=== PATIENT | female | born 1980 | race Two or more races ===

== ENCOUNTER 2020-11-01 14:11 | Emergency (ER) | payer BC, MEDICAID ==
[~2020-11-01] VITALS: Ht 152.4 cm; Wt 46.0 kg
[~2020-11-01 14:11] MED LIST: ACET-704 PO; IBUP-1060 PO
[2020-11-01] MEDS ORDERED: TRIA80OI TP (17:39)
[2020-11-01] MEDS ORDERED: CETI10TA74 PO (17:39)
--- NOTE | 2020-11-01 17:39 | PHYS DOC ---
General Adult EDM: Chief Complaint: SKIN PROBLEM HPI: HPI: Patient is a 40 year old female who presents to the ED today with a pruritic rash on the neck that began on Sunday. Patient denies any new soaps, laundry detergents, or anything that could have caused to rash. Denies any fever Review of Systems: Review of Systems: Constitutional: Denies fever or chills. [] Musculoskeletal: Denies back pain or joint pain. [] Integument: Reports rash to neck Neurologic: Denies headache, focal weakness or sensory changes. [] Psychiatric: Denies depression or anxiety. [] Heart Score: C/O Chest Pain: N/A Risk Factors: Risk Factors: DM, Current or recent (<one month) smoker, HTN, HLP, family history of CAD, obesity. Risk Scores: Score 0 - 3: 2.5% MACE over next 6 weeks - Discharge Home Score 4 - 6: 20.3% MACE over next 6 weeks - Admit for Clinical Observation Score 7 - 10: 72.7% MACE over next 6 weeks - Early Invasive Strategies Allergies: Allergies: Allergies Coded Allergies Type Severity Reaction Last Updated Verified No Known Drug Allergies 05/30/14 No Physical Exam: PE: Constitutional: Well developed, well nourished, no acute distress, non-toxic appearance. [] Skin: Warm, dry, anterior neck with small amount of erythematous papular rash, no drainage. Back: No tenderness, no CVA tenderness. [] Extremities: No tenderness, no cyanosis, no clubbing, ROM intact, no edema. [] Neurologic: Alert and oriented X 3, normal motor function, normal sensory function, no focal deficits noted. [] Psychologic: Affect normal, judgement normal, mood normal. [] EKG: EKG: [] Radiology/Procedures: Radiology/Procedures: [] Course & Med Decision Making: Course & Med Decision Making Pertinent Labs and Imaging studies reviewed. (See chart for details) Is a 40-year-old female patient presented to the ED today with contact dermatitis rash to the neck. Discharge triamcinolone cream and Zyrtec. Follow- up with PCP as needed. Abdulkadiron Disclaimer: Rossana Disclaimer: This electronic medical record was generated, in whole or in part, using a voice recognition dictation system. Departure Departure Impression: Primary Impression: Contact dermatitis Qualified Codes: L25.9 - Unspecified contact dermatitis, unspecified cause Disposition: HOME / SELF CARE / HOMELESS Condition: STABLE Referrals: JERSON JOYNER MD (PCP) follow up in one week Patient Instructions: Contact Dermatitis, [id number] Additional Instructions: You have a rash on your neck. Use the prescribed medication as ordered. Follow-up with your primary care doctor in 1 to 2 weeks Scripts Cetirizine Hcl (ZYRTEC) 10 Mg Tablet 1 TAB PO DAILY, #30 TAB 2 Refills Prov: GREER WICK APRN 11/01/20 Triamcinolone Acetonide (TRIAMCINOLONE ACETONIDE) 80 Gm Oint...g. 1 ALEC TP BID, #80 GM 1 Refill Prov: GREER WICK APRN 11/01/20 GREER WICK APRN Nov 01, 2020 17:39
[2020-11-01 17:45] VITALS: BP 127/68
== END 2020-11-01 19:00 | disposition home or self-care (01) ==
LOC: ER 14:11
DX: L25.9 Unspecified contact dermatitis, unspecified cause (principal)
CPT/HCPCS: 99283